=== PATIENT | female | born 1945 | race Caucasian/White ===

== ENCOUNTER 2018-01-14 12:24 | Outpatient (CLI) | payer MEDICARE, OTHER ==
--- NOTE | 2018-01-14 15:39 | MRI ---
MRI OF LEFT KNEE PERFORMED WITHOUT CONTRAST ENHANCEMENT: 01/14/18 HISTORY: Left knee pain for several months. No known injury. The anterior as well as posterior cruciate ligaments are intact. The medial and lateral menisci are normal in shape and appearance. The medial and lateral collateral ligaments and iliotibial band regions appear unremarkable. There is some moderate articular cartilage loss involving the patella, particularly the lateral facet . There are subchondral marrow edema change associated with this. Medial and lateral patellar retinac ulum as well as quadriceps and patellar tendons are normal. IMPRESSION: 1. No evidence of meniscal or cruciate ligament injury. 2. Fairly pronounced articular cartilage loss involving the lateral facet of the patella with willard bchondral edema change. POS: [facility]
== END 2018-01-14 12:25 | disposition home or self-care (01) ==
LOC: SCSMRI 12:24
PROVIDERS: ATTEND Family Medicine
DX: M25.561 Pain in right knee (principal); M25.562 Pain in left knee; M62.81 Muscle weakness (generalized)

== ENCOUNTER 2018-10-04 09:53 | Outpatient (CLI) | payer MEDICARE, OTHER ==
--- NOTE | 2018-10-04 11:04 | MMO ---
Bilateral MAMMO Bilat Screen [facility]. CLINICAL HISTORY: Patient is 73 years old and is seen for screening. The patient has no family history of breast cancer. The patient has a history of kidney cancer at age 61. The patient has a history of left Stereotatic Biopsy at age 49 - benign. VIEWS: The views performed were: bilateral craniocaudal and bilateral mediolateral oblique. FILMS COMPARED: The present examination has been compared to prior imaging studies performed at [facility] on 06/26/2010 and 08/03/2015, and at [facility] on 01/21/2010, 03/24/2013 and 04/26/2014. This study has been interpreted with the assistance of computer-aided detection. MAMMOGRAM FINDINGS: There are scattered fibroglandular densities. There are stable benign appearing calcifications seen in both breasts. There are no suspicious masses, suspicious calcifications, or new areas of architectural distortion. IMPRESSION: THERE IS NO MAMMOGRAPHIC EVIDENCE OF MALIGNANCY. A ROUTINE FOLLOW-UP MAMMOGRAM IN 1 YEAR IS RECOMMENDED. ACR BI-RADS Category 2 - Benign finding MAMMOGRAPHY NOTE: 1. A negative mammogram report should not delay a biopsy if a dominant of clinically suspicious mass is present. 2. Approximately 10% to 15% of breast cancers are not detected by mammography. 3. Adenosis and dense breasts may obscure an underlying neoplasm.
== END 2018-10-04 09:54 | disposition home or self-care (01) ==
LOC: SCSMAMMO 09:53
PROVIDERS: ATTEND Family Medicine
DX: Z12.31 Encounter for screening mammogram for malignant neoplasm of breast (principal); Z85.528 Personal history of other malignant neoplasm of kidney
CPT/HCPCS: 77067

== ENCOUNTER 2022-06-12 10:49 | Outpatient (CLI) | payer MEDICARE | END 2022-06-12 10:50 | disposition home or self-care (01) | LOC: BICMAMMO 10:49 | PROVIDERS: ATTEND Family Medicine | DX: Z12.31 Encounter for screening mammogram for malignant neoplasm of breast (principal); Z91.89 Other specified personal risk factors, not elsewhere classified; Z85.528 Personal history of other malignant neoplasm of kidney | CPT/HCPCS: 77063; 77067 ==

== ENCOUNTER 2022-09-02 08:59 | Outpatient (CLI) | payer MEDICARE | END 2022-09-02 09:00 | disposition home or self-care (01) | LOC: BICULT 08:59 | PROVIDERS: ATTEND Internal Medicine Gastroenterology | DX: K21.9 Gastro-esophageal reflux disease without esophagitis (principal); K44.9 Diaphragmatic hernia without obstruction or gangrene; D12.6 Benign neoplasm of colon, unspecified; R14.3 Flatulence; N28.1 Cyst of kidney, acquired | CPT/HCPCS: 76705 ==

== ENCOUNTER 2024-06-23 09:30 | Outpatient (CLI) | payer MEDICARE | END 2024-06-23 09:31 | disposition home or self-care (01) | LOC: PET 09:30 | PROVIDERS: ATTEND Family Medicine | DX: C64.1 Malignant neoplasm of right kidney, except renal pelvis (principal); C79.89 Secondary malignant neoplasm of other specified sites; R93.89 Abnormal findings on diagnostic imaging of other specified body structures | CPT/HCPCS: 78815; A9552 ==